=== PATIENT | female | born 1950 | race Caucasian/White ===

== ENCOUNTER 2022-02-08 10:03 | Emergency (ER) | payer MEDICARE ==
[~2022-02-08] VITALS: Ht 167.6 cm; Wt 65.8 kg
[2022-02-08] MEDS ORDERED: LMX 515 GM TOP (10:57)
[2022-02-08] MEDS ORDERED: HYDROCORT 2.5%-30 GM TD (10:57)
== END 2022-02-08 11:35 | disposition home or self-care (01) ==
LOC: ED 10:03
DX: B37.3 Candidiasis of vulva and vagina (principal)
CPT/HCPCS: 81001; 87088; 99283